=== PATIENT | male | born 1960 | race Caucasian/White ===

== ENCOUNTER → 2016-06-04 | Outpatient (CLI) | payer BC ==
[~2016-06-04] MED LIST: CHOL100010 PO
== END | disposition home or self-care (01) ==
LOC: C.LAB 09:16
PROVIDERS: ATTEND Urology
DX: N39.3 Stress incontinence (female) (male) (principal)

== ENCOUNTER → 2016-11-17 | Outpatient (CLI) | payer BC | END | disposition home or self-care (01) | LOC: C.LAB 13:58 | PROVIDERS: ATTEND Urology | DX: C61 Malignant neoplasm of prostate (principal) ==

== ENCOUNTER → 2017-03-06 | Outpatient (CLI) | payer OTHER, BC ==
--- NOTE | 2017-03-06 10:08 | DIAGNOSTIC IMAGING REPORT ---
LEFT THUMB 3 VIEWS HISTORY: LEFT THUMB, CRUSH INJURY COMPARISON: None. FINDINGS: Severe osteoarthritis at the first carpometacarpal joint joint. There are few ossific densities adjacent to the carpometacarpal joint which are likely well corticated and may be due to long-standing degenerative change or old trauma. However, a small acute fracture cannot be entirely excluded. Soft tissues swelling within the thumb. There are 2 punctate radiopaque foreign body seen along the palmar skin surface at the thumb base. No dislocation. IMPRESSION: 1. There are few small ossific densities adjacent to the first carpometacarpal joint which appear to be well corticated and are likely due to long-standing degenerative change or old trauma. However, a small acute fracture at this location cannot be entirely excluded. Recommend correlation for pain to assess for an acute injury. 2. There are 2 punctate radiopaque foreign bodies seen along the palmar skin surface at the thumb base Electronically signed by: Mack Mabry M.D. 03/06/2017 10:07 AM Dictated Date/Time: 03/06/2017 10:04 AM
== END | disposition home or self-care (01) ==
LOC: C.RAD1850 09:07
PROVIDERS: ATTEND Physician Assistant
DX: S67.02XA Crushing injury of left thumb, initial encounter (principal); X58.XXXA Exposure to other specified factors, initial encounter

== ENCOUNTER → 2017-07-20 | Outpatient (CLI) | payer OTHER | END | disposition home or self-care (01) | LOC: C.LAB 15:59 | PROVIDERS: ATTEND Urology | DX: Z00.00 Encounter for general adult medical examination without abnormal findings (principal); R97.20 Elevated prostate specific antigen [PSA]; N52.9 Male erectile dysfunction, unspecified; C61 Malignant neoplasm of prostate ==

== ENCOUNTER 2018-01-06 08:15 | Emergency (ER) | payer OTHER ==
[~2018-01-06] VITALS: Ht 185.4 cm; Wt 113.4 kg
[2018-01-06 08:18] VITALS: TEMP 36.7; Ht 185.4 cm; Wt 113.4 kg
[2018-01-06 08:26] VITALS: O2SAT 97
[2018-01-06] MEDS ORDERED: CHOL1000 PO (08:36)
[2018-01-06] MEDS ORDERED: DILTIAZEM HCL 5 MG/ML 5 ML VIAL IV STA ×2 (08:54→11:15)
[2018-01-06] MEDS: SODIUM CHLORIDE 0.9% 500ML 500 ML IV SCH ×4 (09:00→10:05)
[2018-01-06 09:01] LABS: BASO % 0.4 %; BASO ABS # 0.02 K/uL (0-0.2); EOS % 4.2 %; EOS ABS # 0.21 K/uL (0-0.5); HEMATOCRIT 46.6 % (42-52); HEMOGLOBIN 15.5 g/dL (14.0-18.0); IG# 0.02 K/uL (0.00-0.02); LYMPH % 34.5 %; LYMPH ABS # 1.71 K/uL (1.2-3.4); MEAN CELL VOLUME 90.8 fL (80-100); MEAN CORPUSCULAR HEMOGLOBIN 30.2 pg (25-34); MEAN CORPUSCULAR HGB CONC 33.3 g/dl (32-36); MONO % 7.3 %; MONO ABS # 0.36 K/uL (0.11-0.59); NEUT % 53.2 %; NEUT ABS # 2.64 K/uL (1.4-6.5); PLATELET COUNT 187 K/uL (130-400); RED CELL DISTRIBUTION WIDTH CV 13.4 % (11.5-14.5); RED CELL DISTRIBUTION WIDTH SD 43.8 fL (36.4-46.3); WHITE BLOOD COUNT 4.96 K/uL (4.8-10.8)
[2018-01-06 09:11] LABS: CREATININE 1.12 mg/dl (0.60-1.40)
[2018-01-06 09:12] LABS: CALCIUM 9.3 mg/dl (8.5-10.1); POTASSIUM 3.9 mmol/L (3.5-5.1); TOTAL PROTEIN 8.1 gm/dl (6.4-8.2)
--- NOTE | 2018-01-06 09:15 | EMERGENCY ROOM VISIT NOTE ---
History First contact with patient: 08:28 Chief Complaint: CARDIAC ASSESSMENT Stated Complaint: CHEST PRESSURE/LIGHTHEADED/AFIB Nursing Triage Summary: pt presents to room b09 via als. pt was sitting in a meeting at work and had sudden onsent of weakness, dizziness and chest discomfort at approx 0700. pt reports he has had stress test done several years ago that was inconclusive. pt reports he had stress test done due to having chest pain. History of Present Illness The patient is a 57 year old male who presents to the Emergency Room with complaints of dizziness starting acutely at 7am this morning while in a meeting at work. He reports that he felt his heart was beating faster. He took an ambulance here. There was some chest discomfort associated with his symptoms. This has happened several times in the past few years and he did seek ER care in the past. Per chart review he was seen here for Palpitations in 2012, 2014 and more recently. Was never told he ever had Atrial Fibrillation. Denies ever been given a Holter Monitor. He did have a stress test here. He has never seen a hand sign writer. SHx: Pt denies significant ETOH use, denies smoking. Got a report that the patient began experiencing a 10/10 left sided discomfort that he describes as sharp. Upon my exam pt states that the pain has resolved but felt remarkably like a kidney stone that he had in the past. Source of History: patient, spouse/significant other Symptom Intensity: moderate Quality: ache (chest), colicky (flank pain) Timing: waxes/wanes Associated Symptoms: + chest pain, No LOC, No fevers, No chills Review of Systems See HPI for pertinent positives and negatives. A total of ten systems were reviewed and were otherwise negative. Constitutional: No fever, No chills ENT: No hearing loss Respiratory: + shortness of breath, No cough Cardiovascular: + chest pain, No edema, No claudication Abdomen: No pain, No nausea, No vomiting, No diarrhea, No constipation Musculoskeletal: No joint pain Genitourinary - Male: No hematuria, No dysuria, No urinary frequency, No urinary hesitancy Neurologic: No memory loss Endocrine: No fatigue Past Medical/Surgical History Medical Problems: (1) Calculus Of Ureter (2) Malign Neopl Prostate Surgical Problems: (1) History of radical prostatectomy Social History Smoking Status: Never Smoker Alcohol Use: occasionally Marital Status: Housing Status: lives with family Current/Historical Medications Scheduled Cholecalciferol (Vitamin D3), 1,000 UNITS PO DAILY Diltiazem Hcl Ext Rel (Tiazac), 180 MG PO QAM Physical Exam Vital Signs Date Time Temp Pulse Resp B/P (MAP) Pulse Ox O2 Delivery O2 Flow Rate FiO2 01/06/18 12:50 57 20 114/79 95 Room Air 01/06/18 11:57 53 18 118/75 96 Room Air 01/06/18 11:24 54 20 127/69 95 Room Air 01/06/18 11:16 60 01/06/18 11:16 61 01/06/18 11:13 143 20 119/83 98 Room Air 01/06/18 11:10 142 01/06/18 10:23 93 20 116/84 95 Room Air 01/06/18 09:32 73 20 125/73 96 Room Air 01/06/18 09:19 79 01/06/18 09:16 78 20 109/75 95 Nasal Cannula 2.0 01/06/18 09:12 84 01/06/18 09:09 107 20 123/68 95 Nasal Cannula 01/06/18 09:00 115 18 109/83 95 Nasal Cannula 2.0 01/06/18 08:26 97 Nasal Cannula 2.0 01/06/18 08:26 134 24 121/91 95 Nasal Cannula 2.0 01/06/18 08:24 95 Room Air 01/06/18 08:19 138 01/06/18 08:18 95 Room Air 01/06/18 08:18 36.7 143 20 142/94 97 Room Air Physical Exam Gen: No acute distress. HEENT: Head - normocephalic and atraumatic. Pupils are equal, round, and reactive to light. Extraocular eye muscles are intact and sclera are anicteric. Ears - bilaterally patent canals with noninjected tympanic membranes and no evidence of hemotympanum. Nose - moist nasal mucosa without discharge. Mouth - moist buccal mucosa. Oropharynx is nonerythematous and there is no tonsillar exudate or edema noted. Neck: Supple; no JVD, nuchal rigidity, cervical lymphadenopathy, or auscultated bruits. Heart: Regular rate and rhythm. There is a normal S1 and S2 with no murmurs, clicks, or gallops appreciated. Lungs: Clear to auscultation bilaterally with no wheezes, rales, or rhonchi. Abdomen: Soft, completely nontender, nondistended, with good bowel sounds. There are no palpable pulsatile masses or hepatosplenomegaly. There is no guarding, rigidity, or rebound noted. Extremities: No evidence of cyanosis, clubbing, or edema. There are easily palpable peripheral pulses. Neuro:The patient is awake and alert, oriented to day, time, and place. Muscle strength is 5/5 in all 4 extremities. The patient has equal custom decorating consultant strength and equal pedal push and pull. There are no cerebellar signs. Medical Decision & Procedures ER Provider Diagnostic Interpretation: KUB HISTORY: Acute left-sided flank pain eval for stone, left sided flank pain COMPARISON: CT abdomen and pelvis 12/14/2012 FINDINGS: The bowel gas pattern is non-obstructive. Mild to moderate formed colonic stool. There is no organomegaly. Renal shadows are partially obscured by bowel gas. No renal calculi or ureteral calculi identified. Calcifications about the pelvis suggest phleboliths. No pneumoperitoneum or pneumatosis. No fracture. Degenerative changes of the spine and hips. IMPRESSION: No renal or ureteral calculi identified. ANGIO ABD/PELVIS WITH CONTRAST CLINICAL HISTORY: Chest pressure. Lightheadedness. Evaluate for stone versus dissection. COMPARISON STUDY: CT of the abdomen and pelvis December 14, 2012 and KUB performed earlier today. TECHNIQUE: Arterial phase imaging of the abdomen and pelvis was performed following intravenous injection of 91 cc of Optiray 320 IV. Sagittal and coronal reconstructions were viewed as well as maximal intensity projections on an independent 3-D workstation. FINDINGS: Please note that the chest CT will be reported separately. Arterial phase images of the liver, spleen, adrenal glands and pancreas are normal. There is no biliary or pancreatic ductal dilatation. There is no peripancreatic or pericholecystic infiltration. The caliber of the abdominal aorta is normal. Branch vessels are patent. Accessory left renal artery is noted. There is no dissection within the abdominal aorta. Caliber and wall thickness of small and large bowel are normal. The appendix is normal. Prostate gland is surgically absent. A water attenuation 3.5 cm left pelvic sidewall focus is new since prior CT of December 14, 2012. Note is made of a 3 cm left renal cyst. There is no hydronephrosis. There are no ureteral calculi. Sensitivity for detection of renal calculi is diminished given contrast. There are no suspicious osseous lesions. IMPRESSION: 1. Unremarkable CTA of the abdomen and pelvis. Normal caliber abdominal aorta with no dissection. Patent branch vessels. 2. No acute process within the abdomen or pelvis. 3. 3.5 cm water attenuation left pelvic sidewall lesion which is new since CT of December 14, 2012. Given interval prostatectomy, a lymphocele is favored. CT CHEST COMBO ANGIO DISSECTION CLINICAL HISTORY: Chest pain. Possible dissection. COMPARISON STUDY: No previous studies for comparison. FINDINGS: Unenhanced images were obtained through the chest. The patient was then scanned in a dynamic helical fashion during intravenous administration of 91 cc of Optiray 320. Arterial phase imaging was performed. MIP imaging was acquired. A dose reduction technique was utilized according to the principles of ALARA. Unenhanced images reveal no evidence of acute aortic hematoma. There is a 3 mm left lobe thyroid nodule. There is no evidence of thoracic aortic aneurysm or dissection. No pulmonary artery filling defects are visualized. There are no pathologically enlarged axillary, mediastinal, or hilar lymph nodes. There are no pleural effusions. There is no focal pulmonary consolidation. There are scattered right lung pulmonary nodules, the largest of which is located within the right middle lobe measuring 5.8 mm. Visualized portions the upper abdomen reveal a partially visualized left renal cyst. IMPRESSION: 1. No evidence of thoracic aneurysm or dissection 2. Scattered right lung pulmonary nodules, the largest of which is located within the right middle lobe measuring 5.8 mm. In a low risk patient, current recommendations indicate no need for follow-up. Laboratory Results 01/06/18 08:10 Red Blood Count 5.13, Mean Corpuscular Volume 90.8, Mean Corpuscular Hemoglobin 30.2, Mean Corpuscular Hemoglobin Concent 33.3, Mean Platelet Volume 11.0, Neutrophils (%) (Auto) 53.2, Lymphocytes (%) (Auto) 34.5, Monocytes (%) (Auto) 7.3, Eosinophils (%) (Auto) 4.2, Basophils (%) (Auto) 0.4, Neutrophils # (Auto) 2.64, Lymphocytes # (Auto) 1.71, Monocytes # (Auto) 0.36, Eosinophils # (Auto) 0.21, Basophils # (Auto) 0.02 01/06/18 08:10 Test 01/06/18 08:10 01/06/18 08:55 01/06/18 09:01 White Blood Count 4.96 K/uL (4.8-10.8) Red Blood Count 5.13 M/uL (4.7-6.1) Hemoglobin 15.5 g/dL (14.0-18.0) Hematocrit 46.6 % (42-52) Mean Corpuscular Volume 90.8 fL (80-100) Mean Corpuscular Hemoglobin 30.2 pg (25-34) Mean Corpuscular Hemoglobin Concent 33.3 g/dl (32-36) Platelet Count 187 K/uL (130-400) Mean Platelet Volume 11.0 fL (7.4-10.4) Neutrophils (%) (Auto) 53.2 % Lymphocytes (%) (Auto) 34.5 % Monocytes (%) (Auto) 7.3 % Eosinophils (%) (Auto) 4.2 % Basophils (%) (Auto) 0.4 % Neutrophils # (Auto) 2.64 K/uL (1.4-6.5) Lymphocytes # (Auto) 1.71 K/uL (1.2-3.4) Monocytes # (Auto) 0.36 K/uL (0.11-0.59) Eosinophils # (Auto) 0.21 K/uL (0-0.5) Basophils # (Auto) 0.02 K/uL (0-0.2) RDW Standard Deviation 43.8 fL (36.4-46.3) RDW Coefficient of Variation 13.4 % (11.5-14.5) Immature Granulocyte % (Auto) 0.4 % Immature Granulocyte # (Auto) 0.02 K/uL (0.00-0.02) Anion Gap 8.0 mmol/L (3-11) Est Creatinine Clear Calc Drug Dose 93.7 ml/min Estimated GFR () 82.9 Estimated GFR (Non- 71.5 BUN/Creatinine Ratio 9.4 (10-20) Calcium Level 9.3 mg/dl (8.5-10.1) Magnesium Level 2.4 mg/dl (1.8-2.4) Total Bilirubin 0.4 mg/dl (0.2-1) Aspartate Amino Transf (AST/SGOT) 22 U/L (15-37) Alanine Aminotransferase (ALT/SGPT) 30 U/L (12-78) Alkaline Phosphatase 90 U/L (45-117) Total Protein 8.1 gm/dl (6.4-8.2) Albumin 4.0 gm/dl (3.4-5.0) Globulin 4.1 gm/dl (2.5-4.0) Albumin/Globulin Ratio 1.0 (0.9-2) Lipase 187 U/L (73-393) Thyroid Stimulating Hormone (TSH) 1.010 uIu/ml (0.300-4.500) Lyme Disease IgG Antibody NEG (NEG) Lyme Disease IgM Antibody NEG (NEG) Urine Color YELLOW Urine Appearance CLEAR (CLEAR) Urine pH 7.5 (4.5-7.5) Urine Specific [place] 1.003 (1.000-1.030) Urine Protein NEG (NEG) Urine Glucose (UA) NEG (NEG) Urine Ketones NEG (NEG) Urine Occult Blood NEG (NEG) Urine Nitrite NEG (NEG) Urine Bilirubin NEG (NEG) Urine Urobilinogen NEG (NEG) Urine Leukocyte Esterase NEG (NEG) Bedside Troponin I < 0.030 ng/ml (0-0.045) Medications Administered Medications (Trade) Dose Ordered Sig/Kishor Route Start Time Stop Time Status Last Admin Dose Admin Sodium Chloride 500 ml @ 999 mls/hr Q31M IV 01/06/18 09:00 02/05/18 08:59 01/06/18 09:58 999 MLS/HR Diltiazem HCl (Cardizem Inj) 15 mg NOW STAT IV 01/06/18 08:54 01/06/18 09:02 DC 01/06/18 09:08 15 MG ECG Per My Interpretation Change: Initial EKG. Afib with RVR, Rate of 139, no ST changes. When compared with ECG of 02-JAN-2015 04:36, Vent. rate has increased BY 81 BPM A Fib and no longer sinus. 2nd EKG Atrial fibrillation, rate of 85, no ST changes. When compared with ECG of 06-JAN-2018 08:18, (unconfirmed) No more rapid ventricular response. 3rd EKG Sinus maurizio, rate of 52, no ST changes, no ischemia When compared with ECG of 06-JAN-2018 10:02, (unconfirmed) Sinus rhythm has replaced Atrial fibrillation Medical Decision The patient's care and disposition was discussed with Dr. Nguyễn, Attending ED Physician. This is a 57M with Dizziness and Palpitations. Differential diagnosis include Etiologies such as cardiac ischemia, aortic dissection, pulmonary embolism, pneumonia, pneumothorax, musculoskeletal, infections, gastrointestinal, benign positional vertigo, dehydration, hypovolemia, anemia, tumor, infection, hypoglycemia, electrolyte abnormalities, cardiac sources, intracerebral event, toxicologic, neurologic, ectopy, cardiac dysrhythmia, electrolyte abnormality, thyroid dysfunction, pulmonary embolism, infection, gastrointestinal, as well as others were entertained. Triage Nursing notes were reviewed. ED Course included an extensive history and physical exam, labs, EKG, Chest X-ray and KUB. 8:30AM - Pt was seen and examined at bedside and initial orders were placed. 9:00AM - Case discussed with Dr. Nguyễn and orders updated. 500mL NSS bolus ordered and 15mg IV Diltiazem. 10:30AM - Results review with patient, HR much improved after Diltiazem. KUB did not show stone, pt is having a recurrence of his left sided flank pain (no CVA tenderness, no fevers), will order a CTA on him to rule out dissection. Diltiazem reduced rate to the 80s. Resting comfortably. 12:30: CTA results reviewed with patient. Pt converted to sinus maurizio rhythm after he sneezed. Confirmed by EKG. 12:45 - Discussed case with Hospitalist, Dr Nicholson, because of low CHAD2 score and lack of comorbidities. Advised to clear outpatient follow up with [facility] [employer] specialist, Dr. Trejo. 1:00pm - Spoke with Dr. Trejo and reviewed case with him. Pt is OK to be discharged on a QAM daily dose of 180mg Diltiazem as long as patient does not take too many doses in a 24hr period - which I will review with patient. Outpatient follow can be arranged. 1:15pm - Arranged follow up appointment with Thompson Mayorga on 01/07/2018 at 3:45pm. 1:30pm - Spoke with patient about follow up and about taking 1 tab of Diltiazem should his symptoms recur tonight. And then starting 180mg of Diltiazem tomorrow AM. Pt and verbalized understanding. Pt remains in sinus rhythm. Asymptomatic. CHADVAS2 score was 0 - ASA on indicated per Dr. Trejo. The left flank pain may be a small renal calculi, because of the use of contrast this may have masked detection by the CT. Pt was advised to drink a lot of water and strain his urine. The pt was informed about the findings as listed above. All questions were answered. Return instructions were outlined and the patient was discharged in good condition. The patient was referred to PCP for recheck of the current condition. Head Trauma GCS Score: 15 Impression Primary Impression: Atrial fibrillation Additional Impression: Atrial fibrillation with rapid ventricular response Departure Information Dispostion Home / Self-Care Condition GOOD Prescriptions Diltiazem Hcl Ext Rel (Tiazac) 180 Mg Capcr 180 MG PO QAM for 12 Days, #12 CAP 0 Refills 1 tablet every 24hrs starting AM 01/07/18, if symptoms start tonight, take 1 tablet and then 1 tablet every 24hrs afterwards Prov: Josemanuel Ramírez M.D. 01/06/18 Referrals Johnathan Adams M.D. (PCP) Patient Instructions My [facility] Resident Involvement: Resident Care Provided Care Provided: Adult ED Problem Qualifiers
--- NOTE | 2018-01-06 09:36 | DIAGNOSTIC IMAGING REPORT ---
CHEST 1 VW FRONT-NOT PORTABLE CLINICAL HISTORY: CHEST PRESSURE, LIGHTHEADED COMPARISON STUDY: Chest radiograph January 02, 2015. FINDINGS: Lung volumes are normal. No pneumothorax or pleural effusion is present. There is no consolidation or evidence for pulmonary edema. Cardiomediastinal silhouette is stable. IMPRESSION: No acute cardiopulmonary findings. Electronically signed by: Gabo Jasso M.D. 01/06/2018 9:34 AM Dictated Date/Time: 01/06/2018 9:34 AM
--- NOTE | 2018-01-06 09:38 | DIAGNOSTIC IMAGING REPORT ---
KUB HISTORY: Acute left-sided flank pain eval for stone, left sided flank pain COMPARISON: CT abdomen and pelvis 12/14/2012 FINDINGS: The bowel gas pattern is non-obstructive. Mild to moderate formed colonic stool. There is no organomegaly. Renal shadows are partially obscured by bowel gas. No renal calculi or ureteral calculi identified. Calcifications about the pelvis suggest phleboliths. No pneumoperitoneum or pneumatosis. No fracture. Degenerative changes of the spine and hips. IMPRESSION: No renal or ureteral calculi identified. Electronically signed by: Yuriy Mann M.D. 01/06/2018 9:36 AM Dictated Date/Time: 01/06/2018 9:34 AM
[2018-01-06] MEDS ORDERED: SODIUM CHLORIDE 0.9% 500ML 500 ML IV SCH (10:00)
[2018-01-06] MEDS ORDERED: OPTIRAY 320 IV PRN (11:30)
--- NOTE | 2018-01-06 12:15 | DIAGNOSTIC IMAGING REPORT ---
CT CHEST COMBO ANGIO DISSECTION CLINICAL HISTORY: Chest pain. Possible dissection. COMPARISON STUDY: No previous studies for comparison. FINDINGS: Unenhanced images were obtained through the chest. The patient was then scanned in a dynamic helical fashion during intravenous administration of 91 cc of Optiray 320. Arterial phase imaging was performed. MIP imaging was acquired. A dose reduction technique was utilized according to the principles of ALARA. Unenhanced images reveal no evidence of acute aortic hematoma. There is a 3 mm left lobe thyroid nodule. There is no evidence of thoracic aortic aneurysm or dissection. No pulmonary artery filling defects are visualized. There are no pathologically enlarged axillary, mediastinal, or hilar lymph nodes. There are no pleural effusions. There is no focal pulmonary consolidation. There are scattered right lung pulmonary nodules, the largest of which is located within the right middle lobe measuring 5.8 mm. Visualized portions the upper abdomen reveal a partially visualized left renal cyst. IMPRESSION: 1. No evidence of thoracic aneurysm or dissection 2. Scattered right lung pulmonary nodules, the largest of which is located within the right middle lobe measuring 5.8 mm. In a low risk patient, current recommendations indicate no need for follow-up. Please refer to below summary of Fleischner criteria recommendations for follow-up of incidental CT nodules (Guicho Kaplan, Guidelines for management of small pulmonary nodules detected on CT scans: A statement from the Fleischner Society, Radiology 237: [phone].) SOLID NODULES Solitary nodule size: <6 mm * low risk patients: no follow-up needed * high risk patients: optional CT at 12 months Solitary nodule size: 6-8 mm * low risk patients: follow-up at 6-12 months, then consider further follow-up at 18-24 months * high risk patients: initial follow-up CT at 6-12 months and then at 18-24 months if no change Solitary nodule size: >8 mm * either low or high risk patients - consider follow-up CT at 3 months, and/or CT-PET, and/or biopsy Multiple nodules size: <6 mm * low risk patients: no routine follow-up * high risk patients: optional CT at 12 months Multiple nodules size: 6-8 mm * low risk patients: follow-up at 3-6 months, then consider further follow-up at 18-24 months * high risk patients: follow-up at 3-6 months, then at 18-24 months if no change Multiple nodules size: >8 mm * low risk patients: follow-up at 3-6 months, then consider further follow-up at 18-24 months * high risk patients: follow-up at 3-6 months, then at 18-24 months if no change Note: newly detected indeterminate nodule in persons 35 years of age or older. * low risk patients: minimal or absent history of smoking and/or other known risk factors * high risk patients: history of smoking or of other known risk factors (e.g. first degree relative with lung cancer, or exposure to asbestos, radon, uranium) * if a nodule up to 8 mm is partly solid or is ground glass further follow-up is required after 24 months to exclude possible slow growing adenocarcinoma (RADHA) SUBSOLID NODULES Solitary pure ground-glass nodule * nodule size <6 mm - no CT follow-up required * nodule size >=6 mm - follow-up CT at 6-12 months, then every 2 years until 5 years Solitary part-solid nodule * nodule size <6 mm - no CT follow-up required * nodule size >=6 mm - follow-up CT at 3-6 months. If unchanged, and solid component remains <6 mm, then annual follow-up for 5 years Multiple subsolid nodules * nodule size <6 mm - follow-up CT at 3-6 months, consider further follow-up at 2 and 4 years if stable * nodule size >=6 mm - follow-up CT at 3-6 months, subsequent management based on the most suspicious nodule(s) Electronically signed by: Everett Ram M.D. 01/06/2018 12:14 PM Dictated Date/Time: 01/06/2018 12:06 PM
--- NOTE | 2018-01-06 12:18 | DIAGNOSTIC IMAGING REPORT ---
ANGIO ABD/PELVIS WITH CONTRAST CLINICAL HISTORY: Chest pressure. Lightheadedness. Evaluate for stone versus dissection. COMPARISON STUDY: CT of the abdomen and pelvis December 14, 2012 and KUB performed earlier today. TECHNIQUE: Arterial phase imaging of the abdomen and pelvis was performed following intravenous injection of 91 cc of Optiray 320 IV. Sagittal and coronal reconstructions were viewed as well as maximal intensity projections on an independent 3-D workstation. FINDINGS: Please note that the chest CT will be reported separately. Arterial phase images of the liver, spleen, adrenal glands and pancreas are normal. There is no biliary or pancreatic ductal dilatation. There is no peripancreatic or pericholecystic infiltration. The caliber of the abdominal aorta is normal. Branch vessels are patent. Accessory left renal artery is noted. There is no dissection within the abdominal aorta. Caliber and wall thickness of small and large bowel are normal. The appendix is normal. Prostate gland is surgically absent. A water attenuation 3.5 cm left pelvic sidewall focus is new since prior CT of December 14, 2012. Note is made of a 3 cm left renal cyst. There is no hydronephrosis. There are no ureteral calculi. Sensitivity for detection of renal calculi is diminished given contrast. There are no suspicious osseous lesions. IMPRESSION: 1. Unremarkable CTA of the abdomen and pelvis. Normal caliber abdominal aorta with no dissection. Patent branch vessels. 2. No acute process within the abdomen or pelvis. 3. 3.5 cm water attenuation left pelvic sidewall lesion which is new since CT of December 14, 2012. Given interval prostatectomy, a lymphocele is favored. Electronically signed by: Gabo Jasso M.D. 01/06/2018 12:17 PM Dictated Date/Time: 01/06/2018 12:07 PM
[2018-01-06] MEDS ORDERED: DILT-113 PO (13:24)
[2018-01-06 13:57] VITALS: BP 109/70; PULSE 56; O2SAT 95
--- NOTE | 2018-01-06 14:39 | EMERGENCY ROOM VISIT NOTE ---
History Report prepared by Tim: Herrera Bell Under the Supervision of: Dr. Faith Nguyễn D.O. First contact with patient: 08:24 Chief Complaint: CARDIAC ASSESSMENT Stated Complaint: CHEST PRESSURE/LIGHTHEADED/AFIB Nursing Triage Summary: pt presents to room b09 via als. pt was sitting in a meeting at work and had sudden onsent of weakness, dizziness and chest discomfort at approx 0700. pt reports he has had stress test done several years ago that was inconclusive. pt reports he had stress test done due to having chest pain. 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 The patient described a "discomfort" in his chest that he experienced as well. The patient notes that he has been to the ED before for similar chest discomfort symptoms. Review of EMR shows that the patient was seen for palpitations in 2012 and 2014. He was never told he had atrial fibrillation. Patient does not routinely follow with prison classification counselor. Patient denies any recent trauma or change in activity, no recent illness. Denies fevers or chills. Patient states he has no symptoms now while at rest, cannot feel palpitations or racing heart. No nausea or vomiting, no headaches, vision changes, abdominal pain, back pain, paresthesias. No recent change in bowel or bladder function. Upon arrival in the emergency room, nursing staff performed EKG and patient found to be in A. fib with RVR. Patient seen in conjunction with the resident, please see his note as well. 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 A total of 10 systems reviewed and were otherwise negative. Past Medical & Surgical Medical Problems: (1) Calculus Of Ureter (2) Malign Neopl Prostate Surgical Problems: (1) History of radical prostatectomy Social History Smoking Status: Never Smoker Alcohol Use: occasionally Marital Status: Housing Status: lives with family Current/Historical Medications Scheduled Cholecalciferol (Vitamin D3), 1,000 UNITS PO DAILY Diltiazem Hcl Ext Rel (Tiazac), 180 MG PO QAM Allergies Coded Allergies: No Known Allergies (Unverified , 01/06/18) Physical Exam Vital Signs Date Time Temp Pulse Resp B/P (MAP) Pulse Ox O2 Delivery O2 Flow Rate FiO2 01/06/18 13:57 56 18 109/70 95 01/06/18 12:50 57 20 114/79 95 Room Air 01/06/18 11:57 53 18 118/75 96 Room Air 01/06/18 11:24 54 20 127/69 95 Room Air 01/06/18 11:16 60 01/06/18 11:16 61 01/06/18 11:13 143 20 119/83 98 Room Air 01/06/18 11:10 142 01/06/18 10:23 93 20 116/84 95 Room Air 01/06/18 09:32 73 20 125/73 96 Room Air 01/06/18 09:19 79 01/06/18 09:16 78 20 109/75 95 Nasal Cannula 2.0 01/06/18 09:12 84 01/06/18 09:09 107 20 123/68 95 Nasal Cannula 01/06/18 09:00 115 18 109/83 95 Nasal Cannula 2.0 01/06/18 08:26 97 Nasal Cannula 2.0 01/06/18 08:26 134 24 121/91 95 Nasal Cannula 2.0 01/06/18 08:24 95 Room Air 01/06/18 08:19 138 01/06/18 08:18 95 Room Air 01/06/18 08:18 36.7 143 20 142/94 97 Room Air Physical Exam GENERAL: alert, well appearing, well nourished, no distress, non-toxic EYE EXAM: normal conjunctiva, PERRL and EOM's grossly intact OROPHARYNX: no exudate, no erythema, lips, buccal mucosa, and tongue normal and mucous membranes are moist NECK: supple, no nuchal rigidity, no adenopathy, non-tender LUNGS: Clear to auscultation. Normal chest wall mechanics, no w/r/r HEART: no murmurs, S1 normal and S2 normal, tachycardic and irregular, A. fib noted on telemetry ABDOMEN: abdomen soft, non-tender, normo-active bowel sounds, no masses, no rebound or guarding. BACK: Back is symmetrical on inspection and there is no deformity, no midline tenderness, no CVA tenderness. SKIN: no rashes and no bruising UPPER EXTREMITIES: upper extremities are grossly normal. Full range of motion, normal pulses. LOWER EXTREMITIES: No pitting edema. Full range of motion, normal pulses. NEURO EXAM: Normal sensorium, cranial nerves II-XII grossly intact, normal speech, no gross weakness of arms, no gross weakness of legs. No facial droop. Medical Decision & Procedures ER Provider Diagnostic Interpretation: Radiology results have been interpreted by the radiologist and reviewed by me. ANGIO ABD/PELVIS WITH CONTRAST CLINICAL HISTORY: Chest pressure. Lightheadedness. Evaluate for stone versus dissection. COMPARISON STUDY: CT of the abdomen and pelvis December 14, 2012 and KUB performed earlier today. TECHNIQUE: Arterial phase imaging of the abdomen and pelvis was performed following intravenous injection of 91 cc of Optiray 320 IV. Sagittal and coronal reconstructions were viewed as well as maximal intensity projections on an independent 3-D workstation. FINDINGS: Please note that the chest CT will be reported separately. Arterial phase images of the liver, spleen, adrenal glands and pancreas are normal. There is no biliary or pancreatic ductal dilatation. There is no peripancreatic or pericholecystic infiltration. The caliber of the abdominal aorta is normal. Branch vessels are patent. Accessory left renal artery is noted. There is no dissection within the abdominal aorta. Caliber and wall thickness of small and large bowel are normal. The appendix is normal. Prostate gland is surgically absent. A water attenuation 3.5 cm left pelvic sidewall focus is new since prior CT of December 14, 2012. Note is made of a 3 cm left renal cyst. There is no hydronephrosis. There are no ureteral calculi. Sensitivity for detection of renal calculi is diminished given contrast. There are no suspicious osseous lesions. IMPRESSION: 1. Unremarkable CTA of the abdomen and pelvis. Normal caliber abdominal aorta with no dissection. Patent branch vessels. 2. No acute process within the abdomen or pelvis. 3. 3.5 cm water attenuation left pelvic sidewall lesion which is new since CT of December 14, 2012. Given interval prostatectomy, a lymphocele is favored. Electronically signed by: Gabo Jasso M.D. 01/06/2018 12:17 PM Dictated Date/Time: 01/06/2018 12:[address] CHEST COMBO ANGIO DISSECTION CLINICAL HISTORY: Chest pain. Possible dissection. COMPARISON STUDY: No previous studies for comparison. FINDINGS: Unenhanced images were obtained through the chest. The patient was then scanned in a dynamic helical fashion during intravenous administration of 91 cc of Optiray 320. Arterial phase imaging was performed. MIP imaging was acquired. A dose reduction technique was utilized according to the principles of ALARA. Unenhanced images reveal no evidence of acute aortic hematoma. There is a 3 mm left lobe thyroid nodule. There is no evidence of thoracic aortic aneurysm or dissection. No pulmonary artery filling defects are visualized. There are no pathologically enlarged axillary, mediastinal, or hilar lymph nodes. There are no pleural effusions. There is no focal pulmonary consolidation. There are scattered right lung pulmonary nodules, the largest of which is located within the right middle lobe measuring 5.8 mm. Visualized portions the upper abdomen reveal a partially visualized left renal cyst. IMPRESSION: 1. No evidence of thoracic aneurysm or dissection 2. Scattered right lung pulmonary nodules, the largest of which is located within the right middle lobe measuring 5.8 mm. In a low risk patient, current recommendations indicate no need for follow-up. Please refer to below summary of Fleischner criteria recommendations for follow-up of incidental CT nodules (Guicho Kaplan, Guidelines for management of small pulmonary nodules detected on CT scans: A statement from the Fleischner Society, Radiology 237: [phone].) SOLID NODULES Solitary nodule size: <6 mm * low risk patients: no follow-up needed * high risk patients: optional CT at 12 months Solitary nodule size: 6-8 mm * low risk patients: follow-up at 6-12 months, then consider further follow-up at 18-24 months * high risk patients: initial follow-up CT at 6-12 months and then at 18-24 months if no change Solitary nodule size: >8 mm * either low or high risk patients - consider follow-up CT at 3 months, and/or CT-PET, and/or biopsy Multiple nodules size: <6 mm * low risk patients: no routine follow-up * high risk patients: optional CT at 12 months Multiple nodules size: 6-8 mm * low risk patients: follow-up at 3-6 months, then consider further follow-up at 18-24 months * high risk patients: follow-up at 3-6 months, then at 18-24 months if no change Multiple nodules size: >8 mm * low risk patients: follow-up at 3-6 months, then consider further follow-up at 18-24 months * high risk patients: follow-up at 3-6 months, then at 18-24 months if no change Note: newly detected indeterminate nodule in persons 35 years of age or older. * low risk patients: minimal or absent history of smoking and/or other known risk factors * high risk patients: history of smoking or of other known risk factors (e.g. first degree relative with lung cancer, or exposure to asbestos, radon, uranium) * if a nodule up to 8 mm is partly solid or is ground glass further follow-up is required after 24 months to exclude possible slow growing adenocarcinoma (RADHA) SUBSOLID NODULES Solitary pure ground-glass nodule * nodule size <6 mm - no CT follow-up required * nodule size >=6 mm - follow-up CT at 6-12 months, then every 2 years until 5 years Solitary part-solid nodule * nodule size <6 mm - no CT follow-up required * nodule size >=6 mm - follow-up CT at 3-6 months. If unchanged, and solid component remains <6 mm, then annual follow-up for 5 years Multiple subsolid nodules * nodule size <6 mm - follow-up CT at 3-6 months, consider further follow-up at 2 and 4 years if stable * nodule size >=6 mm - follow-up CT at 3-6 months, subsequent management based on the most suspicious nodule(s) Electronically signed by: Everett Ram M.D. 01/06/2018 12:14 PM Dictated Date/Time: 01/06/2018 12:06 PM CHEST 1 VW FRONT-NOT PORTABLE CLINICAL HISTORY: CHEST PRESSURE, LIGHTHEADED COMPARISON STUDY: Chest radiograph January 02, 2015. FINDINGS: Lung volumes are normal. No pneumothorax or pleural effusion is present. There is no consolidation or evidence for pulmonary edema. Cardiomediastinal silhouette is stable. IMPRESSION: No acute cardiopulmonary findings. Electronically signed by: Gabo Jasso M.D. 01/06/2018 9:34 AM Dictated Date/Time: 01/06/2018 9:34 AM KUB HISTORY: Acute left-sided flank pain eval for stone, left sided flank pain COMPARISON: CT abdomen and pelvis 12/14/2012 FINDINGS: The bowel gas pattern is non-obstructive. Mild to moderate formed colonic stool. There is no organomegaly. Renal shadows are partially obscured by bowel gas. No renal calculi or ureteral calculi identified. Calcifications about the pelvis suggest phleboliths. No pneumoperitoneum or pneumatosis. No fracture. Degenerative changes of the spine and hips. IMPRESSION: No renal or ureteral calculi identified. Electronically signed by: Yuriy Mann M.D. 01/06/2018 9:36 AM Dictated Date/Time: 01/06/2018 9:34 AM Laboratory Results 01/06/18 08:10 Red Blood Count 5.13, Mean Corpuscular Volume 90.8, Mean Corpuscular Hemoglobin 30.2, Mean Corpuscular Hemoglobin Concent 33.3, Mean Platelet Volume 11.0, Neutrophils (%) (Auto) 53.2, Lymphocytes (%) (Auto) 34.5, Monocytes (%) (Auto) 7.3, Eosinophils (%) (Auto) 4.2, Basophils (%) (Auto) 0.4, Neutrophils # (Auto) 2.64, Lymphocytes # (Auto) 1.71, Monocytes # (Auto) 0.36, Eosinophils # (Auto) 0.21, Basophils # (Auto) 0.02 01/06/18 08:10 Test 01/06/18 08:10 01/06/18 08:55 01/06/18 09:01 White Blood Count 4.96 K/uL (4.8-10.8) Red Blood Count 5.13 M/uL (4.7-6.1) Hemoglobin 15.5 g/dL (14.0-18.0) Hematocrit 46.6 % (42-52) Mean Corpuscular Volume 90.8 fL (80-100) Mean Corpuscular Hemoglobin 30.2 pg (25-34) Mean Corpuscular Hemoglobin Concent 33.3 g/dl (32-36) Platelet Count 187 K/uL (130-400) Mean Platelet Volume 11.0 fL (7.4-10.4) Neutrophils (%) (Auto) 53.2 % Lymphocytes (%) (Auto) 34.5 % Monocytes (%) (Auto) 7.3 % Eosinophils (%) (Auto) 4.2 % Basophils (%) (Auto) 0.4 % Neutrophils # (Auto) 2.64 K/uL (1.4-6.5) Lymphocytes # (Auto) 1.71 K/uL (1.2-3.4) Monocytes # (Auto) 0.36 K/uL (0.11-0.59) Eosinophils # (Auto) 0.21 K/uL (0-0.5) Basophils # (Auto) 0.02 K/uL (0-0.2) RDW Standard Deviation 43.8 fL (36.4-46.3) RDW Coefficient of Variation 13.4 % (11.5-14.5) Immature Granulocyte % (Auto) 0.4 % Immature Granulocyte # (Auto) 0.02 K/uL (0.00-0.02) Anion Gap 8.0 mmol/L (3-11) Est Creatinine Clear Calc Drug Dose 93.7 ml/min Estimated GFR () 82.9 Estimated GFR (Non- 71.5 BUN/Creatinine Ratio 9.4 (10-20) Calcium Level 9.3 mg/dl (8.5-10.1) Magnesium Level 2.4 mg/dl (1.8-2.4) Total Bilirubin 0.4 mg/dl (0.2-1) Aspartate Amino Transf (AST/SGOT) 22 U/L (15-37) Alanine Aminotransferase (ALT/SGPT) 30 U/L (12-78) Alkaline Phosphatase 90 U/L (45-117) Total Protein 8.1 gm/dl (6.4-8.2) Albumin 4.0 gm/dl (3.4-5.0) Globulin 4.1 gm/dl (2.5-4.0) Albumin/Globulin Ratio 1.0 (0.9-2) Lipase 187 U/L (73-393) Thyroid Stimulating Hormone (TSH) 1.010 uIu/ml (0.300-4.500) Lyme Disease IgG Antibody NEG (NEG) Lyme Disease IgM Antibody NEG (NEG) Urine Color YELLOW Urine Appearance CLEAR (CLEAR) Urine pH 7.5 (4.5-7.5) Urine Specific [place] 1.003 (1.000-1.030) Urine Protein NEG (NEG) Urine Glucose (UA) NEG (NEG) Urine Ketones NEG (NEG) Urine Occult Blood NEG (NEG) Urine Nitrite NEG (NEG) Urine Bilirubin NEG (NEG) Urine Urobilinogen NEG (NEG) Urine Leukocyte Esterase NEG (NEG) Bedside Troponin I < 0.030 ng/ml (0-0.045) Laboratory results per my review. Medications Administered Medications (Trade) Dose Ordered Sig/Kishor Route Start Time Stop Time Status Last Admin Dose Admin Sodium Chloride 500 ml @ 999 mls/hr Q31M IV 01/06/18 09:00 01/06/18 14:22 DC 01/06/18 09:58 999 MLS/HR Diltiazem HCl (Cardizem Inj) 15 mg NOW STAT IV 01/06/18 08:54 01/06/18 09:02 DC 01/06/18 09:08 15 MG ECG Per My Interpretation Rate (beats per minute): 139 Rhythm: atrial fibrillation Findings: no acute ischemic change, other (Normal QRS and QTC) Change: REPEAT: A-Fib 85, normal QTC and QRS, no ischemic change, no ectopy. REPEAT: Sinus Kieran 52, normal axis, normal intervals. ED Course 0824: The patient was evaluated in room B9. A complete history and physical exam was performed. 0854: ordered cardizem 15 mg IV. 1358: Upon reevaluation, the patient is feeling better. I discussed the findings and the treatment plan with the patient. He verbalizes agreement and understanding. The patient was discharged home. Medical Decision Prior records/ancillary studies reviewed. Triage Nursing notes reviewed. Differential diagnosis: Etiologies such as benign positional vertigo, dehydration, hypovolemia, anemia, tumor, infection, hypoglycemia, electrolyte abnormalities, cardiac sources, intracerebral event, toxicologic, neurologic, premature contractions, electrolyte abnormality, cardiac dysrhythmia, thyroid dysfunction, pulmonary embolism, infection, gastrointestinal, as well as others were entertained. Patient reevaluated multiple times by myself as well as the resident. Patient initially found to be in A. fib with RVR, and upon initiation of Cardizem, had improved rate control down into the 80s. Patient was being monitored here, labs and imaging are reassuring. Given suspicion for possible intermittent A. fib given reported palpitations previously, the resident and I discussed admission. While awaiting hospitalist return call patient sneezed spontaneously and converted into normal sinus rhythm. Patient monitored here longer as a precaution to assure he did not go back in atrial fibrillation. Case discussed with hospitalist and then with cardiology for possible close outpatient follow-up given his spontaneous conversion here in the emergency room. Machine Sewer agreed with this plan and gave orders for oral Cardizem. We feel patient is low risk based on his chads vas2 score for stroke. We do not feel anticoagulation is needed at this time. Please refer to the resident note for additional details regarding the conversations with medicine and cardiology. At time of discharge patient well-appearing, in a normal sinus rhythm in the upper 50s and 60s, hemodynamically stable, aware of all results and plan and in agreement. Discussed symptoms to watch and return for, he verbalized understanding. I do not suspect ACS, PE, occult infectious etiology. No evidence of acute thyroid dysfunction. Patient aware he will need additional cardiology evaluation including likely echo. Feel patient is stable for outpatient discharge and follow-up at this time. Medication Reconcilliation Current Medication List: was personally reviewed by me Blood Pressure Screening Patient's blood pressure: Normal blood pressure Impression Primary Impression: Atrial fibrillation with rapid ventricular response Additional Impressions: Palpitations Chest pain Critical Care I have personally spent greater than 35 minutes of critical care time in the direct management of this patient. This includes bedside care, interpretation of diagnostic studies, and testing, discussion with consultants, patient, and family members, and other required patient management activities. This 35 minutes is in excess of all separately billable procedures. Scribe Attestation The scribe's documentation has been prepared under my direction and personally reviewed by me in its entirety. I confirm that the note above accurately reflects all work, treatment, procedures, and medical decision making performed by me. Departure Information Dispostion Home / Self-Care Prescriptions Diltiazem Hcl Ext Rel (Tiazac) 180 Mg Capcr 180 MG PO QAM for 12 Days, #12 CAP 0 Refills 1 tablet every 24hrs starting AM 01/07/18, if symptoms start tonight, take 1 tablet and then 1 tablet every 24hrs afterwards Prov: Josemanuel Ramírez M.D. 01/06/18 Referrals Johnathan Adams M.D. (PCP) Forms IMPORTANT VISIT INFORMATION Patient Instructions My [facility] Additional Instructions A Cardiology Appointment at [address] [facility] [place], [address] has been made for you on 01/07/2018 at 3:45pm. Please arrive at 3:30pm. You are being discharged on a new medication call Cardizem(Diltiazem). Please take one tablet every morning. If you experience Palpitations after you get home tonight you can take 1 Diltiazem and then 1 tablet every 24hours afterwards. Do not take more than one tablet in a 24hr period unless told to by your prison classification counselor. If you feel that your symptoms are not improved after 1 tablet of Diltiazem please come back to the Emergency Room. Problem Qualifiers Additional Impressions: Chest pain Chest pain type: unspecified Qualified Codes: R07.9 - Chest pain, unspecified
== END 2018-01-06 13:58 | disposition home or self-care (01) ==
LOC: EDBD 08:15 → C.EDB 08:16
DX: I48.91 Unspecified atrial fibrillation (principal); Z87.442 Personal history of urinary calculi; Z85.46 Personal history of malignant neoplasm of prostate; Z90.79 Acquired absence of other genital organ(s); Z79.899 Other long term (current) drug therapy